=== PATIENT | female | born 1965 | race Caucasian/White ===

== ENCOUNTER 2016-06-29 07:38 | Emergency (ER) | payer OTHER ==
[~2016-06-29] VITALS: Ht 170.2 cm; Wt 88.2 kg
[2016-06-29 07:41] VITALS: BP 181/107; PULSE 85; RESP 24; O2SAT 97
--- NOTE | 2016-06-29 07:54 | ED.REPORT ---
HPI-Abd Pain F 40 and Over Date of Service June 29, 2016 ED Provider: Yola Wells MD The patient is a 50 year old female w/ a hx of kidney stones who presents to the ED accompanied by her due to possible kidney stones with abdominal pain onset 8 hrs ago. C/o associated vomiting and nausea. She has had kidney stones 3 times previously, the most recent occurrence was in November 2015. She has never required surgery for her stones previously. This pain is more severe then her prior episodes. The pt has records from [place]. An ultrasound in November shows nephrolithiasis without hydronephrosis. The pt speaks Angolan and a speed winder is needed. Dr. Marino is her PCP. Nursing Notes Stated Complaint: RIGHT SIDE ABDOMINAL PAIN/POSSIBLE KIDNEY STONES Chief Complaint: Female Abdominal Pain Nursing Notes Reviewed: Yes Allergies: Coded Allergies: No Known Allergies (Unverified , 06/29/16) General Time Seen by MD: 07:50 Chief Complaint Abdominal pain Hx Obtained From: Patient Arrived By: Walk-in Sudden in Onset?: Yes Onset Occurred: 5 - 8 hours ago Symptom Duration: Since onset Progression since Onset: Gradually worsening Location: : Abdomen lower: Abdomen upper Quality: Painful Severity: Current: Moderate Recent Healthcare: No recent doctor visit, No recent hospitalization Similar Sx Previous: Yes Past Medical History Past Medical History kidney stones Smoking History Unknown if Ever Smoker Social History Other Social History: , Local resident Ambulatory Status Independent Review of Systems GI: Reports: Abdominal pain, Nausea, Vomiting Complete sys rev & neg: except as marked. Physical Exam Vital Signs Vital Signs (First) Date Time Temp Pulse Resp B/P Pulse Ox O2 Delivery O2 Flow Rate FiO2 06/29/16 07:41 85 24 181/107 97 Room Air Initial VS: Reviewed Head / Eyes: Atraumatic, Normocephalic, PERRL ENT: Mucous membranes moist Neck: Supple, Non-tender Skin: Warm, Dry Neurologic: Alert, Oriented General/Constitutional: Awake, Alert, Cooperative well profused Respiratory / Chest: Atraumatic, Breath sounds NL, Breath sounds = bilat Cardiovascular: Heart rate NL, Regular rhythm, Heart sounds NL Abdomen: Atraumatic, Soft, Non-tender Back: No muscle spasm right CVA tenderness Lower Extremity / Pelvis / MS: No edema Interpretation & Diagnostics Interpretation & Diagnostics: Lab Results Interpretation Test 06/29/16 08:00 06/29/16 08:10 Hold Purple Top Tube Received (Received) Hold Blue Top Tube Received (Received) Hold [place] Top Tube Received (Received) Hold Blank Top Tube Received (Received) Hold Urine Received (Received) Lab Results Interpretation: Urine analysis: signficant hematuria w/ out any white cells or leukocytes CT Abd / Pelvis Interpretation IMPRESSION: 1. Mild right hydronephrosis with a transition at the ureteropelvic junction. This may be secondary to an adjacent punctate stone although the stone is eccentric in position in the renal pelvis or be due to a chronic UPJ obstruction possibly from a crossing vessel. 2. Multiple additional nonobstructing stones demonstrated within the right renal collecting system measuring up to 1 cm. Dictated by: Benito Song M.D. on 06/29/2016 at 11:06 Approved by: Benito Song M.D. on 06/29/2016 at 11:15 Study type: Abdominal CT no contrast Interpretation / Wet Read by: Interpret - Radiologist Re-Eval/Medical Decision Re-Evaluation/Progress : Time of Eval: 09:24 Patient Status: Mild relief Re-Evaluation/Progress Note: Pt rechecked. Tool Design Drafter is present. Able to gather PMHx and ROS. Counseled Regarding: Diagnosis, Lab results, Need for follow-up, When/why to return to ED Discharge & Departure Primary Impression: Renal stone Additional Impressions: Nephrolithiasis Ureterolithiasis Disposition: Home Discharge Condition All VS Reviewed: Yes Condition: Stable Additional Instructions: Your ultrasound shows that you have several kidney stones and that you have passed one. This means your pain will likely continue to improve over the next few days. I have referred you to our kidney specialist doctor, Dr. Bell. Make a follow up appointment in the next week. I am also sending you home with some pain medication, Tramadol. Return to the Emergency Department for any new or worsening symptoms including increased pain and vomiting. I hope you feel better soon! Referrals: Ara Marino MD (PCP) Emily Mohan MD Attestation Portion of this note were transcribed by Elizabeth Monge. I, Dr. Yola Wells, personally performed the history, physical exam, and medical decision-making: I reviewed and confirmed the accuracy for the information in the transcribed note. Signed by: bartolo lBum, 06/29/16 1300 copies to: Emily Mohan MD; Ara Marino MD, Shawna L MD June 29, 2016 07:54 Elizabeth Monge June 29, 2016 08:21
[2016-06-29] MEDS ORDERED: 0.9% Sodium Chloride 1,000 ML IV ONE (08:04)
[2016-06-29] MEDS ORDERED: HYDROmorphone 0.5 mg/0.5 mL iSecure Syringe IVPUSH PRN (08:05)
[2016-06-29] MEDS ORDERED: HYDROmorphone 1 mg/mL Inj IVPUSH ONE (08:05)
[2016-06-29] MEDS ORDERED: Ondansetron 2 mg/mL 2 mL Inj IVPUSH ONE (08:05)
--- NOTE | 2016-06-29 11:17 | DRSVH ---
PROCEDURE: CT KUB ([id number]) INDICATIONS: Right renal pain TECHNIQUE: Noncontrast 5 mm thick sections acquired from the diaphragms to the symphysis. 5 mm thick coronal an d sagittal reformats were then performed. For radiation dose reduction, the following was used: aut omated exposure control, adjustment of mA and/or kV according to patient size. COMPARISON: None. FINDINGS: Image quality: Excellent. Lung bases: There is minimal dependent atelectasis. Heart size is normal. Urinary system: There is mild right hydronephrosis with a transition at the ureteropelvic junction. There is a punctate stone in this region but, given its eccentric location, does not appear to be th e source of obstruction. There are 5 additional nonobstructing stones in the right renal collecting system including a dependent stone in the renal pelvis measuring up to 1 cm. This demonstrates atten uation values of approximately 7500-6693 Hounsfield units. No left renal stones or left hydronephros is. Both ureters appear non-dilated throughout their expected courses. Bladder wall thickness is no rmal; no calcified bladder stones. Other solid organs: Liver and spleen are normal in size. Gallbladder is surgically absent. Pancrea s is normal in contours. No adrenal nodules. Peritoneum and bowel: Unenhanced bowel loops demonstrate normal wall thickness and caliber. The bibi endix is normal in appearance. No free fluid or air. Nodes and vessels: No retroperitoneal or mesenteric adenopathy by size criteria. Aorta and inferior vena cava are normal in caliber. Abdominal wall: No ventral hernias. Pelvis: No free pelvic fluid. No inguinal hernias or adenopathy. Bones: No suspicious bony lesions. No vertebral body compression fractures. IMPRESSION: 1. Mild right hydronephrosis with a transition at the ureteropelvic junction. This may be secondary to an adjacent punctate stone although the stone is eccentric in position in the renal pelvis or be due to a chronic UPJ obstruction possibly from a crossing vessel. 2. Multiple additional nonobstructing stones demonstrated within the right renal collecting system m easuring up to 1 cm. Dictated by: Benito Song M.D. on 06/29/2016 at 11:06 Approved by: Benito Song M.D. on 06/29/2016 at 11:15
[2016-06-29 11:33] VITALS: BP 109/67; PULSE 64; O2SAT 94
[2016-06-29] MEDS ORDERED: TRAM50TA2 PO (12:51)
[2016-06-29 13:30] VITALS: BP 109/67; PULSE 64; RESP 24; O2SAT 94
== END 2016-06-29 13:00 | disposition home or self-care (01) ==
LOC: SED 07:38
DX: N13.2 Hydronephrosis with renal and ureteral calculous obstruction (principal); Z87.442 Personal history of urinary calculi
CPT/HCPCS: 74176; 81025; 96361; 96374; 96375; 99284; J1170; J1885; J2405; J7030

== ENCOUNTER 2016-07-30 11:37 | Day surgery (SDC) | payer OTHER ==
[2016-07-30] VITALS (13 sets, daily range): BP systolic 108–137; BP diastolic 63–99; PULSE 77–109; RESP 11–26; O2SAT 90–97
[~2016-07-30] VITALS: Ht 170.2 cm; Wt 100.6 kg
[~2016-07-30 11:37] MED LIST: Acetaminophen IV 1,000 MG in IV Premix 1 EACH IV ONE; CeFAZolin Inj 2 GM in IV Premix 1 EACH IV ONE; TRAM50TA2 PO
[2016-07-30] MEDS ORDERED: Ondansetron 2 mg/mL 2 mL Inj ONE (11:38)
[2016-07-30] MEDS ORDERED: Propofol 10,000 mCg/mL 20 mL Inj ONE (11:38)
[2016-07-30] MEDS ORDERED: Dexamethasone 4 mg/mL Inj ONE (11:38)
[2016-07-30] MEDS ORDERED: fentaNYL-PF 50 mCg/mL 2 mL Inj ONE ×2 (11:38→17:25)
[2016-07-30] MEDS ORDERED: Phenylephrine/NS-PF 100 mCg/mL 5 mL Syringe IVPUSH ONE (11:38)
[2016-07-30] MEDS ORDERED: MetoCLOpramide 5 mg/mL 2 mL Inj ONE (11:38)
[2016-07-30] MEDS: Lactated Ringer's 1,000 ML IV SCH ×3 (12:17→18:45)
[2016-07-30] MEDS ORDERED: CeFAZolin 2 Gm/50 mL D5W Duplex Bag IV ONE (13:04)
[2016-07-30] MEDS ORDERED: OXYC5CAP4 PO (13:05)
[2016-07-30] MEDS ORDERED: TAMS0.4C98 PO (13:05)
--- NOTE | 2016-07-30 14:58 | PCM.HPANE ---
Patient Data Surgeon Admitting Provider: Attending Provider:Chris Dumont MD Primary Care Physician:Ara Marino MD Other Provider:Lynette Sibleyingham Anesthesia Reason for Visit Right Upj Obstruction, Right Renal Colic Ht/WT & BMI Height (Feet): 5 Height (Inches): 7 Weight (Kilograms): 100.6 Body Mass Index 34.00 Allergies Coded Allergies: No Known Allergies (Unverified , 07/30/16) Past Anesthesia History Anesthesia History: Denies:: Anesthesia Reactions Diabetes History Hx Diabetes?: No Medications Home Meds Incl Beta Kathryn: No Active Scripts Tramadol 50 Mg [id number] Mg PO TID PRN For Pain #30 TABLET Ref 0 Prov:Yola Wells MD 06/29/16 Reported Medications oxyCODONE 5 Mg Capsule5 Mg PO Q4H PRN For Pain Ref 0 07/30/16 Tamsulosin (Flomax)0.4 Mg Capsule0.4 Mg PO DAILY Ref 0 07/30/16 History History of ENT Problems?: No HEENT History: Denies:: Abnormal Airway Cataracts Difficult Intubation Dysphagia Glaucoma Hearing Problem Sinus Problem TMJ Denture Type: None Teeth Condition: Within Normal Limits Hx of Heart Problems?: No Cardiovascular History: Denies:: AICD Abdominal Aortic Aneurism Atrial Fibrillation Cardiac Surgery Chest Pain Congestive Heart Failure Coronary Artery Disease Edema Heart Murmur Hypertension Irregular Heartbeat Pacemaker Peripheral Vascular Rheumatic Fever Thrombophlebitis Valvular Heart Disease Hx of Respiratory Problem?: No Respiratory History: Denies:: Asthma COPD Chest Surgery Cough Dyspnea Emphysema Hemoptysis Oxygen Administration Pneumonia Pulmonary Embolism Tuberculosis Use of C-PAP Machine Use of Inhalers / NEBS Hx Neurologic Problems?: Yes Neurological History: Positive for:: Headaches (migraines per EMR hx) Hx of GI Problems?: Yes Hx of Problems?: Yes Genitourinary History: Positive for:: Kidney Stones (current admission problem - ) Other Pertinent History: prior hx of kidney stones- no prior surgery for. seen in ED 07/01 Female Hx: Denies:: Currently Hx Musculoskeletal Problems?: Yes Musculoskeletal History: Positive for:: Osteoarthritis Hx of Psycho/Social Problems?: No Hx Surgeries?: Yes (lap mariia, hernia) Hx Any Other Health Problems?: Yes Other History: Denies:: Cancer Thyroid Disease Hx Diabetes: No Smoking Status: Unknown if Ever Smoker Stop/Bang Treated for Sleep Apnea?: No Do You Have a CPAP Machine?: No B- Body Mass Index > 35 kg/m2: No A- Age over 50: Yes N- Neck Large Circumference: No G- Gender Male: No JEFFREY Risk Assessment: Low Risk, <3 Yes Risk Assessment Category Category 1A: Patient has history of documented sleep apnea, and HAS NOT received any narcotic, sedative or anesthesia administration during this stay. Category 1B: Patient has history of documented sleep apnea, and HAS received any narcotic , sedative or anesthesia administration during this stay Category 2: Patient has SUSPECTED Obstructive Sleep Apnea, and HAS received any narcotic , sedative or anesthesia administration during this stay. Category 3: Patient has SUSPECTED Obstructive Sleep Apnea and HAS NOT received narcotic, sedative or anesthesia administration during this stay. Category 4: Outpatient in Procedural Areas with known sleep apnea or who screen positive for High Risk via the STOP/BANG questionnaire. Exam Exam Vital Signs Vital Signs Date Time Temp Pulse Resp B/P Pulse Ox O2 Delivery O2 Flow Rate FiO2 07/30/16 12:28 36.4 86 18 127/81 94 Room Air General Appearance: Oriented X3 HEENT/AIRWAY: MP 2 Lungs: Normal Air Movement Heart: Regular Rate/Rhythm Meds/Labs/Diagnostics Admission Meds Current Medications Acetaminophen 1000 mg/Premix 100 ml @ 400 mls/hr PREOP ONCE IV Last administered on 07/30/16 13:27; Start 07/30/16 at 06:00; Stop 07/30/16 at 06:14 ; Status DC Lactated Ringer's (Lr) 1,000 ml @ 120 mls/hr Q8H20M IV Last administered on 12:17; Start 07/30/16 at 05:00; Stop 07/30/16 at 13:28; Status DC Plan Impression Patient chart reviewed, patient interviewed and anesthestic plan with risks, benefits, and alternatives discussed, and informed consent obtained. ASA Physical Status: ASA2 Mod Systemic Disease Anesthetic Plan: GA Bene/Risks/Altern/Consents: Yes HP Complete Prior to Induction: Yes Diaz Dang MD Jul 30, 2016 14:58
[2016-07-30] MEDS ORDERED: Lactated Ringer's 500 ML IV PRN (15:51)
[2016-07-30] MEDS ORDERED: Lactated Ringer's 1,000 ML IV SCH (15:51)
[2016-07-30] MEDS ORDERED: fentaNYL-PF 50 mCg/mL 2 mL Inj IVPUSH PRN (15:55)
[2016-07-30] MEDS ORDERED: EPHEDrine Sulfate 50 mg/mL Inj IVPUSH PRN (15:55)
[2016-07-30] MEDS ORDERED: Dexamethasone 4 mg/mL Inj IVPUSH PRN (15:55)
[2016-07-30] MEDS ORDERED: Ondansetron 2 mg/mL 2 mL Inj IVPUSH PRN (15:55)
[2016-07-30] MEDS ORDERED: MetoCLOpramide 5 mg/mL 2 mL Inj IVPUSH PRN (15:55)
[2016-07-30] MEDS ORDERED: Phenylephrine 10,000 mCg/mL Inj IVPUSH PRN (15:55)
--- NOTE | 2016-07-30 16:58 | DRSVH ---
PROCEDURE: X-RAY KUB ([id number]) INDICATIONS: RIGHT ESWL TECHNIQUE: One view of the abdomen acquired. COMPARISON: [facility], CR, XR KUB, 07/02/2016, 10:13. FINDINGS: Surgical changes and devices: None. Bowel: Bowel gas pattern is normal. Soft tissues: Multiple calcifications again seen projected over the right kidney largest measuring 1. 2 cm and roughly 3 additional smaller calcification present measuring 5 mm. Multiple pelvic calcific ations likely phleboliths. Of note, there are 2 linear metallic radiodensities projected over the ri ght flank and lower abdomen which cannot be further localized without additional views. Bones: No suspicious bony lesions. IMPRESSION: Multiple calcifications seen projected over the right kidney. Dictated by: Sergio HIGGINSA Interpreted: Lisa Pennington MD on 07/30/2016 at 13:02 Approved by: Lisa Pennington M.D. on 07/30/2016 at 16:56
[2016-07-30] MEDS ORDERED: Furosemide 10 mg/mL 2 mL Inj IV ONE (17:05)
[2016-07-30] MEDS: HYDROmorphone 1 mg/mL Inj IVPUSH PRN ×2 (17:39→18:20)
[2016-07-30] MEDS ORDERED: Lactated Ringer's 1,000 ML IV ONE (18:46)
--- NOTE | 2016-07-30 20:34 | OP ---
[address] [address] OPERATIVE REPORT PATIENT: GÓMEZ LABOY : 1965 MR#: [id number] ADMIT: 07/30/2016 JOB ID: [id number] DATE OF SURGERY: 07/30/2016 PREOPERATIVE DIAGNOSIS(ES): 1. Multiple right renal calculi. 2. Right renal colic. 3. 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 POSTOPERATIVE DIAGNOSIS(ES): 1. Multiple right renal calculi. 2. Right renal colic. 3. 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 OPERATION PERFORMED: 1. Cystoscopy, dilation of right ureteral pelvic junction obstruction. 2. Right extracorporeal shock wave lithotripsy (maximal power level 5.0 x2500 shocks). SURGEON: Chris Dumont MD ANESTHESIOLOGIST: Diaz Dang MD. ANESTHESIA: General. FINDINGS: Urethra normal. Bladder urothelium is normal throughout. Orifices are in normal position bilaterally. Following dilation of the UPJ and positioning of the stent, there was some cloudy efflux seen emitting from the right ureteral orifice. A retrograde pyelogram was not performed so not to visually contaminate the operative field via fluoroscopy. PROCEDURE SUMMARY: The patient was positioned in supine and was administered general anesthesia. She was then repositioned in semi lithotomy and the lower abdomen, genitalia, and groin were prepped and draped in sterile fashion. A 22-Greek panendoscope was passed to the lower urinary tract with findings as described above. Next, a 0.35 Glidewire was advanced to the right collecting system under direct and fluoroscopic guidance. Over this, a 6 cm x 18-Greek balloon dilating catheter was positioned across the right ureteropelvic junction. The balloon was then inflated to 18 atmospheres for 5 minutes, after which the balloon was deflated. It was then backloaded off the Glidewire. Now, a 7-Greek x 22-32 multilength stent was selected. This was advanced under direct and fluoroscopic guidance over the Glidewire into the right collecting system satisfactorily. The wire was then removed. NO RETRIEVAL LINE WAS LEFT ATTACHED. Next, the patient was repositioned supine and the above-described stones were individually localized in the XYZ plane and individually treated with the Lithotripter. Lithotripsy was started at minimal power level and then gradually increased for 200 shocks. A 2 minute pause was performed and the lithotripsy was once again commenced and gradually increased to a maximal power level of 5.0. There appeared to be good radiographic evidence of stone comminution. At 2500 shocks, treatment was stopped. The patient was then awakened, transferred to [facility], and transferred to recovery in stable condition.
--- NOTE | 2016-07-31 07:17 | PCM.ANEP1 ---
Post Anesthesia PACU Phase 1 Assessment Anesthetic Administered: GA Level of Alertness: Awake, talking Pain: No Nausea or Vomiting: No CV Function & Hydration Stable: Yes Airway Device: Lungs: Normal Air Movement PACU Phase 2 Assessment Patient Instructions Provided: N/A Diaz Dang MD Jul 31, 2016 07:17
== END 2016-07-30 23:59 | disposition home or self-care (01) ==
LOC: SAS 11:37
PROVIDERS: ATTEND Specialist
DX: N20.0 Calculus of kidney (principal); Q62.11 Congenital occlusion of ureteropelvic junction; N23 Unspecified renal colic; N13.30 Unspecified hydronephrosis; M19.90 Unspecified osteoarthritis, unspecified site; Z87.442 Personal history of urinary calculi
CPT/HCPCS: 50590; 52281; 74000; C2617; J0131; J1100; J1170; J1940; J2250; J2370; J2405; J2765; J3010; J7120

== ENCOUNTER 2016-08-05 12:28 | Emergency (ER) | payer OTHER ==
[~2016-08-05] VITALS: Ht 172.7 cm; Wt 95.5 kg
[~2016-08-05 12:28] MED LIST changes: -Acetaminophen IV 1,000 MG in IV Premix 1 EACH IV ONE; -CeFAZolin Inj 2 GM in IV Premix 1 EACH IV ONE; +OXYC5CAP4 PO; +TAMS0.4C98 PO
[2016-08-05 12:51] VITALS: BP 152/100; PULSE 72; RESP 18; O2SAT 95
[2016-08-05 13:01] VITALS: BP 128/86; PULSE 72; O2SAT 96
--- NOTE | 2016-08-05 13:15 | ED.REPORT ---
HPI-Abd Pain F 40 and Over Date of Service Aug 05, 2016 ED Provider: Maurice Meier DO Patient is a 50 year old female with a history of kidney stones who presents to the ED complaining of flank pain. She reports that she had a kidney stent placed 5 days ago along with a lithotripsy and was in pain that was getting progressively worse. Patient had the kidney stent removed earlier today and is in more pain than before. She reports that she feels like she is going to pass out and is very weak. Prior to arrival to the ED, patient took Oxycodone at 1055 with no relief of symptoms. Patient was seen 06/29/16 for passing a kidney stone. She states that received IV and shots of pain medication, which was the only thing that provided any relief. Nursing Notes Stated Complaint: POSS KIDNEY SPAMS Chief Complaint: Female Abdominal Pain Nursing Notes Reviewed: Yes Allergies: Coded Allergies: No Known Allergies (Unverified , 08/05/16) Scheduled Tamsulosin (Flomax) 0.4 Mg Capsule 0.4 MG PO DAILY Scheduled PRN Oxycodone (Roxicodone) 5 Mg Tablet 10-15 MG PO QID PRN PRN For Pain Tramadol (Tramadol) 50 Mg Tablet 100 MG PO TID PRN PRN For Pain oxyCODONE (oxyCODONE) 5 Mg Capsule 5 MG PO Q4H PRN PRN For Pain General Time Seen by MD: 13:13 Chief Complaint Abdominal pain Hx Obtained From: Patient, Son Arrived By: Walk-in Sudden in Onset?: Yes Onset Occurred: 5 days ago Symptom Duration: Since onset Progression since Onset: Gradually worsening Location: : Flank left: Flank right: RLQ Quality: Painful Severity: Current: Severe Recent Healthcare: No recent hospitalization, Recent doctor visit Similar Sx Previous: Yes Past Medical History Past Medical History kidney stones Smoking History Unknown if Ever Smoker Social History Other Social History: , Local resident Ambulatory Status Independent Review of Systems Constitutional: Reports: Weakness - generalized, Denies: Chills, Fever Respiratory: Denies: Non-productive cough, Shortness of breath GI: Reports: Abdominal pain Female: Reports: Flank pain Complete sys rev & neg: except as marked. Physical Exam Vital Signs Vital Signs (First) Date Time Temp Pulse Resp B/P Pulse Ox O2 Delivery O2 Flow Rate FiO2 08/05/16 12:51 36.8 72 18 152/100 95 Room Air Initial VS: Reviewed General/Constitutional: Awake, Alert Distress / Hydration: Positive: Distress moderate Respiratory / Chest: Atraumatic, Breath sounds NL, Breath sounds = bilat, No respiratory distress Cardiovascular: Heart rate NL, Regular rhythm, Heart sounds NL Abdomen: Atraumatic, Soft Tenderness/Guarding/Rebound: Positive: Tender RLQ... BACK: CVA tenderness Head / Eyes: Atraumatic, Normocephalic, PERRL, EOMI Skin: Atraumatic, Color NL, No rash, Warm, Dry Neurologic: Oriented X3, Speech NL, No motor deficits, No sensory deficits Psychiatric: Affect NL, Mood NL Interpretation & Diagnostics Lab Results Interpretation Test 08/05/16 14:30 Urine Color [place] (YELLOW) Urine Appearance Hazy (CLEAR,HAZY) Urine pH 6.5 (5.0-8.0) Urine Specific [place] 1.005 (1.003-1.035) Urine Protein 30mg/dL (NEG,TRACE) Urine Glucose (UA) Negativemg/dL (NEGATIVE) Urine Ketones Negativemg/dL (NEGATIVE) Urine Occult Blood Moderate (NEGATIVE) Urine Nitrite Positive (NEGATIVE) Urine Bilirubin Negative (NEGATIVE) Urine Urobilinogen Normalmg/dL (NORMAL) Urine Leukocyte Esterase Trace (NEGATIVE) Urine RBC 11-50/hpf (0-2) Urine WBC 6-10/hpf (0-5) Urine Epithelial Cells Occasional/hpf (NONE-MOD) Urine Crystals None seen (NONE SEEN) Urine Bacteria Few/hpf (NONE-FEW) Urine Hyaline Casts None/lpf (NONE) Urine Granular Casts None seen (NONE SEEN) Urine Waxy Casts None seen (NONE SEEN) Urine Red Blood Cell Casts None seen (NONE SEEN) Urine White Blood Cell Casts None seen (NONE SEEN) Urine Mucus Present (None Seen) Urine Trichomonas None seen (NONE SEEN) Urine Yeast None (NONE SEEN) Urinalysis Comment None Urine Culture Reflexed Indicated Hold Urine Received (Received) CT Abd / Pelvis Interpretation IMPRESSION: 1. Unchanged appearance of mild right hydronephrosis with increased prominence of right hydroureter. There is a linear segment of hyperdensity, presumably calcifications, which have become lodged in the distal ureter as described above. Additionally, more numerous calcifications are noted within the right renal pelvis. Distal ureteral as well as renal pelvic calcifications demonstrate migration since prior study and may be sequela of recent stent removal. Dictated by: Lisa Pennington M.D. on 08/05/2016 at 14:49 Approved by: Lisa Pennington M.D. on 08/05/2016 at 15:01 Interpretation / Wet Read by: Interpret - Radiologist Re-Eval/Medical Decision Med Decision/Clinical Course CT and urine were obtained due to pain after recent surgery, her scan shows small stones at the distal ureter. Urinalysis does not appear to be infected, she is afebrile. Discussed with Dr. Dumont who agrees with discharge and follow-up. Oxycodone prescribed as well as ibuprofen. Re-Evaluation/Progress : Time of Eval: 15:30 Re-Evaluation/Progress Note: Discussed CT results and plan that was discussed with Dr. Escobar. Patient understands and agrees to plan. All questions were addressed. Consultation : Consulted With: Urology Call Returned at: 15:25 Pit Crew Support Worker: Agrees with eval, Agrees with plan Note: Consult with Dr. Escobar, urology surgeon, who recommends that the patient continuing taking her Oxycodone and tamsulosin. Counseled Regarding: Diagnosis, Lab results, Need for follow-up, When/why to return to ED Discharge & Departure Primary Impression: Ureterolithiasis Disposition: Home Discharge Condition All VS Reviewed: Yes Condition: Stable Additional Instructions: Follow-up with Dr. Dumont as needed. Continue your tamsulosin. Take oxycodone and ibuprofen for pain. Follow up with your primary care doctor. Return to the ER as needed. Referrals: Ara Marino MD (PCP) [place] Attestation Portions of this note were transcribed by Payton Parks. I, Dr. Kole Gonzalez personally performed the history, physical exam and medical decision-making; I reviewed and confirmed the accuracy of the information in the transcribed note. Signed by: Keli Heath, 08/05/16 and 9508 copies to: Ara Marino MD, Timothy S DO Aug 05, 2016 13:15 Connie Parks Aug 05, 2016 13:58
[2016-08-05] MEDS ORDERED: HYDROmorphone 1 mg/mL Inj IM ONE (13:50)
--- NOTE | 2016-08-05 15:02 | DRSVH ---
PROCEDURE: CT KUB ([id number]) INDICATIONS: flank pain post stent and removal TECHNIQUE: Noncontrast 5 mm thick sections acquired from the diaphragms to the symphysis. 5 mm thick coronal an d sagittal reformats were then performed. For radiation dose reduction, the following was used: aut omated exposure control, adjustment of mA and/or kV according to patient size. COMPARISON: [facility], CR, XR KUB, 08/05/2016, 7:38. [facility], CT, CT KUB , 06/29/2016, 10:42. FINDINGS: Image quality: Excellent. Lung bases: Lung bases are clear. Heart size is normal. Urinary system: There is an unchanged appearance of mild right hydronephrosis and prominent right ext rarenal pelvis. There is mild right hydroureter with periureteral stranding, appearing more prominent when compared to prior exam. Depending calcifications are noted within the renal pelvis approximatel y six in number and appearing more numerous when compared to prior exam. Previous identified parenchy mal calcifications remain present, although less numerous and likely demonstrate migration into the r enal pelvis. The largest calcification is noted within the inferior pole measuring 8 mm, Hounsfield u nits 812. There has been interval appearance of a linear segment of hyperdensity within the distal ri ght ureter measuring approximately 25 mm in craniocaudal dimension. Its greatest width measures 6 mm. Hounsfield units measured 324. It extends to the ureterovesicular junction. Other solid organs: Liver and spleen are normal in size. Gallbladder has been removed. Pancreas is normal in contours. No adrenal nodules. Peritoneum and bowel: Unenhanced bowel loops demonstrate normal wall thickness and caliber. No free fluid or air. Nodes and vessels: No retroperitoneal or mesenteric adenopathy by size criteria. Aorta and inferior vena cava are normal in caliber. Abdominal wall: No ventral hernias. Pelvis: No free pelvic fluid. No inguinal hernias or adenopathy. Bones: No suspicious bony lesions. No vertebral body compression fractures. IMPRESSION: 1. Unchanged appearance of mild right hydronephrosis with increased prominence of right hydroureter. There is a linear segment of hyperdensity, presumably calcifications, which have become lodged in the distal ureter as described above. Additionally, more numerous calcifications are noted within the r ight renal pelvis. Distal ureteral as well as renal pelvic calcifications demonstrate migration since prior study and may be sequela of recent stent removal. Dictated by: Lisa Pennington M.D. on 08/05/2016 at 14:49 Approved by: Lisa Pennington M.D. on 08/05/2016 at 15:01
[2016-08-05] MEDS ORDERED: OXYC-474 PO (15:28)
[2016-08-05 15:31] LABS: APPEARANCE,URINE HAZY (CLEAR,HAZY); COLOR,URINE ORANGE (YELLOW); OCCULT BLOOD,URINE MODERATE (NEGATIVE); PH,URINE 6.5 (5.0-8.0); UROBILINOGEN,URINE NORMAL (NORMAL)
== END 2016-08-05 16:09 | disposition home or self-care (01) ==
LOC: SED 12:28
DX: N20.1 Calculus of ureter (principal)
CPT/HCPCS: 74176; 81000; 87086; 87088; 96372; 99284; J1170; J1885